=== PATIENT | female | born 1970 | race Caucasian/White ===

== ENCOUNTER → 2024-02-17 18:43 | Outpatient (REF) | payer OTHER, SELFPAY | LOC: MRI 18:43 | PROVIDERS: ATTENDING PHYSICIAN Orthopaedic Surgery; FAMILY PHYSICIAN Student in an Organized Health Care Education/Training Program | DX: M25.562 Pain in left knee (principal) | CPT/HCPCS: 73721 ==

== ENCOUNTER 2024-06-09 18:59 | Emergency (ER) | payer OTHER, SELFPAY ==
[2024-06-09 19:14] VITALS: BP 161/95
[2024-06-09 20:00] VITALS: BP 131/78
[2024-06-09] MEDS: TYLENOL 1000 MG PO (20:11)
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
[2024-06-09 20:40] VITALS: BP 129/70
== END 2024-06-09 20:41 | disposition home or self-care (01) ==
LOC: EMR 18:59
PROVIDERS: EMERGENCY PHYSICIAN Emergency Medicine; FAMILY PHYSICIAN Student in an Organized Health Care Education/Training Program
DX: M25.512 Pain in left shoulder (principal); V89.2XXA Person injured in unspecified motor-vehicle accident, traffic, initial encounter
CPT/HCPCS: 99283; 73030